=== PATIENT | male | born 1990 | race Caucasian/White ===

== ENCOUNTER 2018-11-25 09:21 | Emergency (ER) | payer SELFPAY ==
[~2018-11-25] VITALS: Ht 167.6 cm; Wt 77.0 kg
[2018-11-25] MEDS ORDERED: ACETAMINOPHEN 325MG TABLET PO ONE (10:30)
[2018-11-25] MEDS ORDERED: TRAMADOL 50MG TABLET PO ONE (11:15)
[2018-11-25 11:52] VITALS: BP 135/79
== END 2018-11-25 12:07 | disposition home or self-care (01) ==
LOC: ER 09:39
DX: S61.200A Unspecified open wound of right index finger without damage to nail, initial encounter (principal); W26.0XXA Contact with knife, initial encounter; Y93.89 Activity, other specified; Y92.89 Other specified places as the place of occurrence of the external cause; Y99.8 Other external cause status
CPT/HCPCS: 73120; 99283